=== PATIENT | female | born 1945 ===

== ENCOUNTER 2017-11-24 08:12 | Day surgery (SDC) | payer MEDICARE ==
[2017-11-24 08:56] VITALS: BMI 34.0
--- NOTE | 2017-11-24 11:49 | CP.SDSHP ---
Same Day Surgery H & P - History Proposed Procedure: EGD Pre-Op Diagnosis: SEE NOTES - Allergies Allergies: Allergies No Known Allergies Allergy (Verified 11/24/17 08:56) - Physical Exam Vital Signs: Vital Signs 11/24/17 08:41 Temperature 97.3 F L Pulse Rate 88 Respiratory 16 Rate Blood Pressure 149/65 O2 Sat by Pulse 100 Oximetry Neuro: WNL Heart: Other Lungs: WNL GI: Other - {Optional Preform as Required} Breast: WNL Abdomen: Other Rectal: Other Integument: WNL : WNL Ortho: WNL ENT: WNL - Impression Pt. Evaluated Today:Candidate for Anesthesia & Procedure: Yes - Date & Time Time: 11:49 Short Stay Discharge - Short Stay Discharge Admitting Diagnosis/Reason for Visit: HEMORRHAGE, NOT ELSEWHERE CLASSIFIED Disposition: HOME/ ROUTINE
[2017-11-24] MEDS ORDERED: Propofol 10 mg/ml Inj (20 ML) ONE ×2 (11:54→12:02)
[2017-11-24] MEDS ORDERED: Pantoprazole 40 mg EC Tab PO STA (12:05)
[2017-11-24] MEDS ORDERED: Lactated Ringer's 1,000 ML IV ONE (12:15)
[2017-11-24] MEDS ORDERED: Belladonna-Phenobarbital PO ONE (12:35)
[2017-11-24 13:01] VITALS: TEMP 97
[2017-11-24 13:02] VITALS: RESP 18; O2SAT 100
[2017-11-24 13:03] VITALS: BP 162/100; PULSE 88
== END 2017-11-24 13:20 | disposition home or self-care (01) ==
LOC: C.ENDO 08:12
PROVIDERS: ATTEND Specialist
DX: K52.9 Noninfective gastroenteritis and colitis, unspecified (principal); R19.4 Change in bowel habit; K64.4 Residual hemorrhoidal skin tags; K64.8 Other hemorrhoids
CPT/HCPCS: 45378; 82948; 88305; J2704; J7120

== ENCOUNTER 2017-12-01 08:50 | Day surgery (SDC) | payer MEDICARE ==
[2017-12-01] MEDS ORDERED: Propofol 10 mg/ml Inj (20 ML) ONE (10:51)
--- NOTE | 2017-12-01 10:55 | CP.SDSHP ---
Same Day Surgery H & P - History Proposed Procedure: EGD Pre-Op Diagnosis: SEE NOTES - Previous Medical/Surgical History Cardiac: Hypertension Endocrine/Metabolic: Diabetes, Other Misc: Other Pain: 4.Moderate Pain - Allergies Allergies: Allergies No Known Allergies Allergy (Verified 12/01/17 09:14) - Physical Exam General Appearance: N Vital Signs: Vital Signs 12/01/17 12/01/17 09:17 09:26 Temperature 97.8 F Pulse Rate 78 78 Respiratory 16 Rate Blood Pressure 148/65 O2 Sat by Pulse 99 Oximetry Mental Status: Alert & Oriented x3 Neuro: WNL Heart: Other Lungs: WNL GI: Other - {Optional Preform as Required} Breast: WNL Abdomen: Other Rectal: Other Integument: WNL : WNL Ortho: Other ENT: WNL - Impression Pt. Evaluated Today:Candidate for Anesthesia & Procedure: Yes - Date & Time Time: 10:55 Short Stay Discharge - Short Stay Discharge Admitting Diagnosis/Reason for Visit: ABNORMAL WEIGHT LOSS Disposition: HOME/ ROUTINE
[2017-12-01 14:01] VITALS: TEMP 97
[2017-12-01 14:11] VITALS: BP 144/70; PULSE 78; RESP 18; O2SAT 99
== END 2017-12-01 12:20 | disposition home or self-care (01) ==
LOC: C.ENDO 08:50
PROVIDERS: ATTEND Specialist
DX: K20.9 Esophagitis, unspecified (principal); B96.81 Helicobacter pylori [H. pylori] as the cause of diseases classified elsewhere; K29.70 Gastritis, unspecified, without bleeding; E11.9 Type 2 diabetes mellitus without complications; I10 Essential (primary) hypertension
CPT/HCPCS: 43239; 82948; 88305; 88342; J2704